=== PATIENT | male | born 1945 | race Caucasian/White ===

== ENCOUNTER → 2020-12-01 | Outpatient (CLI) | payer MEDICARE, BC ==
--- NOTE | 2020-12-01 15:45 | RAD ---
XR ELBOW COMPLETE_LEFT 3+VIEWS 12/01/2020 3:39 PM Reason: previous stroke, pain in left elbow, pt is contracted and unable / Spl. Instructions: unable to straighten arm or rotate wrist / History: Comparison: None Technique: 4 views of the left elbow Findings: Images are limited secondary to inability to position patient. There is diffuse osseous demineralizat ion of the elbow. There is a small focus of cortical disruption along the olecranon process without d islocation or significant angulation. No elbow joint effusion. Impression: 1. Possible nondisplaced fracture of the olecranon process. There are diffuse changes of osseous velma neralization which limits the exam. Electronically signed by: Jeb Ramírez (12/01/2020 3:42 PM) [id number]
== END ==
LOC: RAD 13:38
PROVIDERS: ATTEND Family Medicine
DX: M25.822 Other specified joint disorders, left elbow (principal)
CPT/HCPCS: 73080